=== PATIENT | male | born 1990 | race Hispanic/Latino ===

== ENCOUNTER 2018-01-05 18:46 | Emergency (ER) | payer SELFPAY ==
[2018-01-05] MEDS ORDERED: Dexamethasone 4 MG TAB ONE (19:17)
[2018-01-05] MEDS ORDERED: Ketorolac Tromethamine 60 MG/2 ML VIAL ONE (19:17)
== END 2018-01-05 19:41 | disposition home or self-care (01) ==
LOC: SCSER 18:46
DX: M26.601 Right temporomandibular joint disorder, unspecified (principal); G43.909 Migraine, unspecified, not intractable, without status migrainosus
CPT/HCPCS: 96372; J1885; J8540

== ENCOUNTER 2018-05-21 13:30 | Emergency (ER) | payer SELFPAY ==
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
[2018-05-21] MEDS ORDERED: Ibuprofen 800 MG TAB ONE (14:16)
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
== END 2018-05-21 14:27 | disposition home or self-care (01) ==
LOC: ERS 13:30
DX: S60.211A Contusion of right wrist, initial encounter (principal); S40.012A Contusion of left shoulder, initial encounter; S50.811A Abrasion of right forearm, initial encounter; G43.909 Migraine, unspecified, not intractable, without status migrainosus; V53.5XXA Driver of pick-up truck or van injured in collision with car, pick-up truck or van in traffic accident, initial encounter

== ENCOUNTER 2020-08-09 20:43 | Emergency (ER) | payer SELFPAY ==
[~2020-08-09 20:43] MED LIST: Iopamidol-370 76% 500 ML 1 ML ONE
[2020-08-09] MEDS ORDERED: Ondansetron PF 4 MG/2 ML Vial ONE (21:21)
[2020-08-09] MEDS ORDERED: Morphine 4 MG/ML VIAL ONE (21:21)
[2020-08-09 21:23] LABS: #Basophils 0.1 thou/uL (0.0-0.2); #Eosinphils 0.1 thou/uL (0.0-0.7); #Lymphocytes 1.8 thou/uL (1.20-3.40); #Monocytes 0.9 thou/uL (0.11-0.59); #Neutrophils 9.5 thou/uL (1.40-6.50); %Basophils 0.6 % (0.0-1.0); %Lymphocytes 14.5 % (21.0-51.0); %Monocytes 6.9 % (0.0-10.0); Hemoglobin 15.8 g/dL (14.0-18.0); Mean Corpuscular Hemoglobin 30.8 pg (27.0-31.0); Mean Corpuscular Volume 90.7 fL (78.0-98.0); Mean Platelet Volume 7.2 fL (7.4-10.4); Platelet Count 318 thou/uL (130-400); RBC Distribution Width 11.1 % (11.5-14.5); Red Blood Cell (RBC) Count 5.13 mill/uL (4.70-6.10); White Blood Cell (WBC) Count 12.3 thou/uL (4.8-10.8)
[2020-08-09 21:27] LABS: Bilirubin Negative (Negative); Blood, Urine Negative (Negative); Clarity Clear (Clear); Glucose, Urine (Dipstick) Normal (Negative); Ketone, Urine Negative (Negative); Leukocyte Negative Leu/uL (Negative); Nitrite Negative (Negative); Protein, Urine (Dipstick) Negative (Neg-Trace); Specific Gravity, Urine 1.025 (1.002-1.036); Urobilinogen Normal mg/dL (Less than 2); pH, Urine 5.5 (5.0-9.0)
[2020-08-09 21:44] LABS: ALT (SGPT) 42 U/L (8-55); AST (SGOT) 27 U/L (5-34); Albumin 4.8 g/dL (3.5-5.0); Alkaline Phosphatase 91 U/L (40-110); Anion Gap 12 mmol/L (10-20); BUN (Urea Nitrogen) 11 mg/dL (8.9-20.6); Bilirubin, Total 0.7 mg/dL (0.2-1.2); Calc. Creatinine Clearance 0 mL/min (70-130); Calcium 9.7 mg/dL (7.8-10.44); Carbon Dioxide 28 mmol/L (22-29); Chloride 103 mmol/L (98-107); Estimated GFR-MDRD 82; Globulin 3.3 g/dL (2.4-3.5); Glucose 88 mg/dL (70-105); Lipase 22 U/L (8-78); Potassium 3.7 mmol/L (3.5-5.1); Protein, Total 8.1 g/dL (6.0-8.3); Sodium 139 mmol/L (136-145)
--- NOTE | 2020-08-09 21:51 | CT ---
CT ABDOMEN AND PELVIS WITH IV CONTRAST: 08/09/20 PROVIDED CLINICAL HISTORY: Left lower quadrant pain. FINDINGS: The visualized lung bases are free of significant opacity. The solid abdominal organs demonstrate an unremarkable CT appearance. There is focal inflammatory fat stranding about a diverticulum involving the distal descending colon. There is no evidence for focal fluid collection or extraluminal gas. A rather conspicuous diverticul um is seen involving the sigmoid colon without surrounding inflammatory change. There is no evidence for bowel obstruction. The appendix appears normal. There is no additional fat stranding or significa nt free fluid. There is no evidence for free intraperitoneal air. The regional major vascular structures appear unremarkable. The osseous structures demonstrate no concerning lytic or blastic lesions. IMPRESSION: Uncomplicated descending colon diverticulitis. POS: [facility]
== END 2020-08-09 23:18 | disposition home or self-care (01) ==
LOC: ERS 20:43
DX: K57.32 Diverticulitis of large intestine without perforation or abscess without bleeding (principal); G43.909 Migraine, unspecified, not intractable, without status migrainosus
CPT/HCPCS: 74177; 80053; 81003; 83690; 85025; 96361; 96374; 96375; J2270; J2405; Q9967

== ENCOUNTER 2021-05-15 00:06 | Inpatient (IN) | payer SELFPAY ==
[2021-05-15] MEDS ORDERED: Ondansetron PF 4 MG/2 ML Vial ONE (00:24)
[2021-05-15] MEDS ORDERED: Ketorolac Tromethamine 30 MG/ML VIAL ONE (00:24)
[2021-05-15 00:45] LABS: #Lymphocytes 0.7 thou/uL (1.20-3.40); #Monocytes 0.3 thou/uL (0.11-0.59); #Neutrophils 3.2 thou/uL (1.40-6.50); %Basophils 0.3 % (0.0-1.0); %Eosinophils 0.1 % (0.0-10.0); %Lymphocytes 16.7 % (21.0-51.0); %Neutrophils 75.9 % (42.0-75.0); Hemoglobin 15.6 g/dL (14.0-18.0); Mean Corpuscular HGB CONC 33.1 g/dL (32.0-36.0); Mean Corpuscular Hemoglobin 30.2 pg (27.0-31.0); Mean Corpuscular Volume 91.4 fL (78.0-98.0); Mean Platelet Volume 7.2 fL (7.4-10.4); Platelet Count 206 thou/uL (130-400); Red Blood Cell (RBC) Count 5.16 mill/uL (4.70-6.10); White Blood Cell (WBC) Count 4.2 thou/uL (4.8-10.8)
[2021-05-15 01:08] LABS: ALT (SGPT) 31 U/L (8-55); AST (SGOT) 41 U/L (5-34); Albumin 4.3 g/dL (3.5-5.0); Alkaline Phosphatase 78 U/L (40-110); Anion Gap 16 mmol/L (10-20); BUN (Urea Nitrogen) 16 mg/dL (8.9-20.6); Bilirubin, Total 0.3 mg/dL (0.2-1.2); Calc. Creatinine Clearance 0 mL/min (70-130); Carbon Dioxide 22 mmol/L (22-29); Chloride 97 mmol/L (98-107); Globulin 3.9 g/dL (2.4-3.5); Glucose 112 mg/dL (70-105); Potassium 3.4 mmol/L (3.5-5.1); Protein, Total 8.2 g/dL (6.0-8.3); Sodium 132 mmol/L (136-145)
[2021-05-15 02:00] LABS: SARS-CoV-2 NAA Rapid Test DETECTED (NotDetected)
[2021-05-15] MEDS ORDERED: Albuterol 200 PUFF (6.7GM INHALER) ONE (02:23)
[2021-05-15] MEDS ORDERED: Acetaminophen 500 MG TAB ONE (02:24)
[2021-05-15] MEDS ORDERED: Dexamethasone 10 MG/ML VIAL ONE (02:24)
[2021-05-15] MEDS ORDERED: Ivermectin 3 MG TAB PO SCH (09:30)
[2021-05-15] MEDS ORDERED: Ondansetron ODT 4 MG TAB PO PRN (09:30)
[2021-05-15] MEDS ORDERED: Albuterol Sulfate 2.5 mg/3 ml Neb NEB PRN (09:30)
[2021-05-15] MEDS ORDERED: Ondansetron PF 4 MG/2 ML Vial IVP PRN (09:30)
[2021-05-15] MEDS ORDERED: Potassium Chloride 20 MEQ TAB PO SCH (09:45)
[2021-05-15] MEDS ORDERED: methylPREDNISolone Sod Succ 40 MG VIAL ONE (10:01)
[2021-05-15] MEDS ORDERED: Potassium Chloride 20 MEQ TAB ONE (10:02)
[2021-05-15] MEDS: methylPREDNISolone Sod Succ/PF 125 MG/2 ML VIAL IVP SCH ×2 (10:14→20:30)
[2021-05-15 12:55] VITALS: BMI 29.0
[2021-05-15] MEDS: Benzonatate 100 MG CAP PO PRN ×2 (13:25→23:16)
[2021-05-15] MEDS: Ketorolac Tromethamine 30 MG/ML VIAL IVP PRN ×2 (13:25→23:15)
[2021-05-15] MEDS: Potassium Chloride 20 MEQ TAB PO SCH (16:52)
[2021-05-15] MEDS: Enoxaparin Sodium 40 MG/0.4 ML SYRINGE SC SCH (20:30)
[2021-05-15] MEDS: Ascorbic Acid 500 mg Chewable Tablet PO SCH (20:31)
[2021-05-15] MEDS: Colchicine 0.6 MG TAB PO SCH ×2 (20:31→20:51)
[2021-05-15] MEDS: Famotidine 20 MG TAB PO SCH (20:31)
[2021-05-15] MEDS: Cholecalciferol 1,000 UNITS (25 MCG) TAB PO SCH (20:32)
[2021-05-15] MEDS: GUAIFENESIN SF SOLN 200 MG/10 ML UDCUP PO PRN (20:32)
[2021-05-15] MEDS: Acetaminophen 500 MG TAB PO PRN (20:50)
[2021-05-16 06:14] LABS: #Lymphocytes 0.7 thou/uL (1.20-3.40); #Monocytes 0.4 thou/uL (0.11-0.59); #Neutrophils 7.3 thou/uL (1.40-6.50); %Basophils 0.1 % (0.0-1.0); %Lymphocytes 7.8 % (21.0-51.0); %Monocytes 4.7 % (0.0-10.0); %Neutrophils 87.4 % (42.0-75.0); Hemoglobin 13.6 g/dL (14.0-18.0); Mean Corpuscular HGB CONC 34.2 g/dL (32.0-36.0); Mean Corpuscular Hemoglobin 31.2 pg (27.0-31.0); Mean Corpuscular Volume 91.1 fL (78.0-98.0); Mean Platelet Volume 7.6 fL (7.4-10.4); Platelet Count 194 thou/uL (130-400); Red Blood Cell (RBC) Count 4.38 mill/uL (4.70-6.10); White Blood Cell (WBC) Count 8.4 thou/uL (4.8-10.8)
[2021-05-16 06:35] LABS: Anion Gap 15 mmol/L (10-20); BUN (Urea Nitrogen) 17 mg/dL (8.9-20.6); CRP (Inflammatory) 5.59 mg/dL (= or < 0.5); Calc. Creatinine Clearance 167 mL/min (70-130); Calcium 8.4 mg/dL (7.8-10.44); Carbon Dioxide 19 mmol/L (22-29); Chloride 106 mmol/L (98-107); Glucose 147 mg/dL (70-105); Potassium 4.2 mmol/L (3.5-5.1); Sodium 136 mmol/L (136-145)
[2021-05-16] MEDS: Zinc Sulfate 220 MG CAP PO SCH (08:35)
[2021-05-16] MEDS: Enoxaparin Sodium 40 MG/0.4 ML SYRINGE SC SCH ×2 (08:35→20:54)
[2021-05-16] MEDS: Ascorbic Acid 500 mg Chewable Tablet PO SCH ×2 (08:35→20:55)
[2021-05-16] MEDS: Colchicine 0.6 MG TAB PO SCH ×2 (08:35→20:55)
[2021-05-16] MEDS: Benzonatate 100 MG CAP PO PRN ×2 (08:35→23:53)
[2021-05-16] MEDS: Famotidine 20 MG TAB PO SCH ×2 (08:35→20:55)
[2021-05-16] MEDS: Potassium Chloride 20 MEQ TAB PO SCH (08:35)
[2021-05-16] MEDS: GUAIFENESIN SF SOLN 200 MG/10 ML UDCUP PO PRN ×2 (08:35→14:43)
[2021-05-16] MEDS: Ketorolac Tromethamine 30 MG/ML VIAL IVP PRN (08:37)
[2021-05-16] MEDS ORDERED: REMDESIVIR 200 MG in Sodium Chloride 0.9% 250 ML 210 ML IV SCH (09:00)
[2021-05-16] MEDS: Acetaminophen 500 MG TAB PO PRN ×3 (09:31→20:56)
[2021-05-16] MEDS: methylPREDNISolone Sod Succ/PF 125 MG/2 ML VIAL IVP SCH ×2 (09:31→20:54)
[2021-05-16] MEDS ORDERED: Albuterol 200 PUFF (6.7GM INHALER) INH PRN (11:10)
[2021-05-16] MEDS: Benzonatate 100 MG CAP PO SCH ×2 (14:43→20:56)
[2021-05-16] MEDS: Cholecalciferol 1,000 UNITS (25 MCG) TAB PO SCH (20:55)
[2021-05-16] MEDS: guaiFENesin ER 600 MG TAB PO SCH (20:56)
[2021-05-17] MEDS: Zinc Sulfate 220 MG CAP PO SCH (09:25)
[2021-05-17] MEDS: Benzonatate 100 MG CAP PO SCH ×3 (09:25→20:27)
[2021-05-17] MEDS: Famotidine 20 MG TAB PO SCH ×2 (09:25→20:27)
[2021-05-17] MEDS: guaiFENesin ER 600 MG TAB PO SCH ×2 (09:25→20:28)
[2021-05-17] MEDS: Ascorbic Acid 500 mg Chewable Tablet PO SCH ×2 (09:25→20:26)
[2021-05-17] MEDS: Enoxaparin Sodium 40 MG/0.4 ML SYRINGE SC SCH ×2 (09:25→20:28)
[2021-05-17] MEDS: Colchicine 0.6 MG TAB PO SCH ×2 (09:25→20:28)
[2021-05-17] MEDS: methylPREDNISolone Sod Succ/PF 125 MG/2 ML VIAL IVP SCH ×2 (09:26→20:30)
[2021-05-17] MEDS: REMDESIVIR 100 MG in Sodium Chloride 0.9% 250 ML 230 ML IV SCH (09:26)
[2021-05-17] MEDS: Acetaminophen 500 MG TAB PO PRN ×2 (09:31→20:30)
[2021-05-17] MEDS: GUAIFENESIN SF SOLN 200 MG/10 ML UDCUP PO PRN ×2 (09:31→15:36)
[2021-05-17] MEDS: Cholecalciferol 1,000 UNITS (25 MCG) TAB PO SCH (20:27)
[2021-05-18 06:30] LABS: #Lymphocytes 0.5 thou/uL (1.20-3.40); #Monocytes 0.4 thou/uL (0.11-0.59); #Neutrophils 5.4 thou/uL (1.40-6.50); %Basophils 0.3 % (0.0-1.0); %Eosinophils 0.1 % (0.0-10.0); %Lymphocytes 8.5 % (21.0-51.0); %Monocytes 5.7 % (0.0-10.0); %Neutrophils 85.4 % (42.0-75.0); Hemoglobin 13.7 g/dL (14.0-18.0); Mean Corpuscular HGB CONC 33.5 g/dL (32.0-36.0); Mean Corpuscular Hemoglobin 31.2 pg (27.0-31.0); Mean Platelet Volume 7.9 fL (7.4-10.4); Platelet Count 244 thou/uL (130-400); RBC Distribution Width 11.2 % (11.5-14.5); Red Blood Cell (RBC) Count 4.38 mill/uL (4.70-6.10); White Blood Cell (WBC) Count 6.3 thou/uL (4.8-10.8)
[2021-05-18 06:55] LABS: ALT (SGPT) 60 U/L (8-55); AST (SGOT) 62 U/L (5-34); Albumin 3.4 g/dL (3.5-5.0); Alkaline Phosphatase 65 U/L (40-110); Anion Gap 13 mmol/L (10-20); BUN (Urea Nitrogen) 15 mg/dL (8.9-20.6); Bilirubin, Total 0.3 mg/dL (0.2-1.2); CRP (Inflammatory) 4.61 mg/dL (= or < 0.5); Calc. Creatinine Clearance 180 mL/min (70-130); Calcium 8.6 mg/dL (7.8-10.44); Carbon Dioxide 26 mmol/L (22-29); Chloride 104 mmol/L (98-107); Globulin 3.1 g/dL (2.4-3.5); Glucose 147 mg/dL (70-105); Potassium 4.3 mmol/L (3.5-5.1); Protein, Total 6.5 g/dL (6.0-8.3); Sodium 139 mmol/L (136-145)
[2021-05-18] MEDS: Famotidine 20 MG TAB PO SCH ×2 (09:32→20:21)
[2021-05-18] MEDS: guaiFENesin ER 600 MG TAB PO SCH ×2 (09:32→20:21)
[2021-05-18] MEDS: Zinc Sulfate 220 MG CAP PO SCH (09:32)
[2021-05-18] MEDS: Colchicine 0.6 MG TAB PO SCH ×2 (09:32→20:21)
[2021-05-18] MEDS: Enoxaparin Sodium 40 MG/0.4 ML SYRINGE SC SCH ×2 (09:32→20:22)
[2021-05-18] MEDS: Ascorbic Acid 500 mg Chewable Tablet PO SCH ×2 (09:32→20:22)
[2021-05-18] MEDS: Benzonatate 100 MG CAP PO SCH ×3 (09:32→20:21)
[2021-05-18] MEDS: REMDESIVIR 100 MG in Sodium Chloride 0.9% 250 ML 230 ML IV SCH (09:33)
[2021-05-18] MEDS: methylPREDNISolone Sod Succ/PF 125 MG/2 ML VIAL IVP SCH ×2 (09:35→21:40)
[2021-05-18] MEDS: GUAIFENESIN SF SOLN 200 MG/10 ML UDCUP PO PRN ×2 (14:54→20:23)
[2021-05-18] MEDS ORDERED: Piperacillin/Tazobactam 3.375 GM in Sodium Chloride 0.9% 100 ML IVPB SCH ×4 (19:30→23:59)
[2021-05-18] MEDS ORDERED: Azithromycin 500 MG in Sodium Chloride 0.9% 250 ML 250 ML IVPB SCH (20:00)
[2021-05-18] MEDS: Cholecalciferol 1,000 UNITS (25 MCG) TAB PO SCH (20:22)
[2021-05-19] MEDS: Piperacillin/Tazobactam 3.375 GM in Sodium Chloride 0.9% 100 ML IVPB SCH ×3 (06:09→21:54)
[2021-05-19 06:21] LABS: Hemoglobin 14.7 g/dL (14.0-18.0); Mean Corpuscular HGB CONC 34.1 g/dL (32.0-36.0); Mean Corpuscular Hemoglobin 31.4 pg (27.0-31.0); Mean Corpuscular Volume 92.1 fL (78.0-98.0); Mean Platelet Volume 7.8 fL (7.4-10.4); Platelet Count 294 thou/uL (130-400); RBC Distribution Width 11.2 % (11.5-14.5); Red Blood Cell (RBC) Count 4.68 mill/uL (4.70-6.10); White Blood Cell (WBC) Count 6.2 thou/uL (4.8-10.8)
[2021-05-19 06:28] LABS: ALT (SGPT) 53 U/L (8-55); AST (SGOT) 36 U/L (5-34); Albumin 3.4 g/dL (3.5-5.0); Alkaline Phosphatase 65 U/L (40-110); Bilirubin, Direct 0.2 mg/dL (0.1-0.3); Bilirubin, Total 0.4 mg/dL (0.2-1.2); Protein, Total 6.4 g/dL (6.0-8.3)
[2021-05-19] MEDS: Ascorbic Acid 500 mg Chewable Tablet PO SCH ×2 (09:36→20:35)
[2021-05-19] MEDS: Colchicine 0.6 MG TAB PO SCH ×2 (09:37→20:36)
[2021-05-19] MEDS: Famotidine 20 MG TAB PO SCH ×2 (09:37→20:36)
[2021-05-19] MEDS: Benzonatate 100 MG CAP PO SCH ×3 (09:37→20:36)
[2021-05-19] MEDS: guaiFENesin ER 600 MG TAB PO SCH (09:37)
[2021-05-19] MEDS: Zinc Sulfate 220 MG CAP PO SCH (09:37)
[2021-05-19] MEDS: REMDESIVIR 100 MG in Sodium Chloride 0.9% 250 ML 230 ML IV SCH (09:40)
[2021-05-19] MEDS: methylPREDNISolone Sod Succ/PF 125 MG/2 ML VIAL IVP SCH ×2 (09:40→20:39)
[2021-05-19] MEDS: Enoxaparin Sodium 40 MG/0.4 ML SYRINGE SC SCH ×2 (09:40→20:35)
[2021-05-19] MEDS: GUAIFENESIN SF SOLN 200 MG/10 ML UDCUP PO PRN ×2 (09:43→14:18)
[2021-05-19] MEDS ORDERED: Ivermectin 3 MG TAB PO SCH (11:00)
[2021-05-19] MEDS: Azithromycin 250 MG in Sodium Chloride 0.9% 250 ML 250 ML IVPB SCH (20:35)
[2021-05-19] MEDS: guaiFENesin/Codeine 200 mg/20 mg 10 ml Cup PO PRN (20:35)
[2021-05-19] MEDS: Cholecalciferol 1,000 UNITS (25 MCG) TAB PO SCH (20:36)
[2021-05-20] MEDS: Piperacillin/Tazobactam 3.375 GM in Sodium Chloride 0.9% 100 ML IVPB SCH ×3 (05:47→22:16)
[2021-05-20] MEDS: Benzonatate 100 MG CAP PO SCH ×3 (09:45→20:27)
[2021-05-20] MEDS: Enoxaparin Sodium 40 MG/0.4 ML SYRINGE SC SCH ×2 (09:46→20:26)
[2021-05-20] MEDS: Ascorbic Acid 500 mg Chewable Tablet PO SCH ×2 (09:46→20:26)
[2021-05-20] MEDS: Zinc Sulfate 220 MG CAP PO SCH (09:46)
[2021-05-20] MEDS: Famotidine 20 MG TAB PO SCH ×2 (09:46→20:27)
[2021-05-20] MEDS: methylPREDNISolone Sod Succ/PF 125 MG/2 ML VIAL IVP SCH ×2 (09:46→22:15)
[2021-05-20] MEDS: Colchicine 0.6 MG TAB PO SCH ×2 (09:46→20:27)
[2021-05-20] MEDS: guaiFENesin/Codeine 200 mg/20 mg 10 ml Cup PO PRN ×2 (09:47→17:03)
[2021-05-20] MEDS: REMDESIVIR 100 MG in Sodium Chloride 0.9% 250 ML 230 ML IV SCH (12:33)
[2021-05-20] MEDS: Acetaminophen 500 MG TAB PO PRN (17:03)
[2021-05-20] MEDS: Cholecalciferol 1,000 UNITS (25 MCG) TAB PO SCH (20:27)
[2021-05-20] MEDS: Azithromycin 250 MG in Sodium Chloride 0.9% 250 ML 250 ML IVPB SCH (20:27)
[2021-05-21] MEDS: Piperacillin/Tazobactam 3.375 GM in Sodium Chloride 0.9% 100 ML IVPB SCH ×3 (05:29→22:33)
[2021-05-21] MEDS: methylPREDNISolone Sod Succ/PF 125 MG/2 ML VIAL IVP SCH ×2 (09:09→22:32)
[2021-05-21] MEDS: Ascorbic Acid 500 mg Chewable Tablet PO SCH ×2 (09:10→20:15)
[2021-05-21] MEDS: Colchicine 0.6 MG TAB PO SCH ×2 (09:10→20:15)
[2021-05-21] MEDS: Enoxaparin Sodium 40 MG/0.4 ML SYRINGE SC SCH ×2 (09:10→20:15)
[2021-05-21] MEDS: Benzonatate 100 MG CAP PO SCH ×3 (09:10→20:15)
[2021-05-21] MEDS: Famotidine 20 MG TAB PO SCH ×2 (09:10→20:15)
[2021-05-21] MEDS: Zinc Sulfate 220 MG CAP PO SCH (09:10)
[2021-05-21] MEDS: Azithromycin 250 MG in Sodium Chloride 0.9% 250 ML 250 ML IVPB SCH (20:14)
[2021-05-21] MEDS: Cholecalciferol 1,000 UNITS (25 MCG) TAB PO SCH (20:15)
[2021-05-22] MEDS: Piperacillin/Tazobactam 3.375 GM in Sodium Chloride 0.9% 100 ML IVPB SCH ×2 (05:31→14:00)
[2021-05-22] MEDS: Enoxaparin Sodium 40 MG/0.4 ML SYRINGE SC SCH (09:20)
[2021-05-22] MEDS: methylPREDNISolone Sod Succ/PF 125 MG/2 ML VIAL IVP SCH (09:21)
[2021-05-22] MEDS: Famotidine 20 MG TAB PO SCH (09:21)
[2021-05-22] MEDS: Ascorbic Acid 500 mg Chewable Tablet PO SCH (09:21)
[2021-05-22] MEDS: Colchicine 0.6 MG TAB PO SCH (09:21)
[2021-05-22] MEDS: Benzonatate 100 MG CAP PO SCH ×2 (09:21→16:28)
[2021-05-22] MEDS: Zinc Sulfate 220 MG CAP PO SCH (09:21)
[2021-05-22 15:40] VITALS: BP 115/69; TEMP 97.9
[2021-05-22] MEDS ORDERED: Amoxicillin/Potassium Clav 875 MG TAB PO SCH (21:00)
== END 2021-05-22 15:39 | disposition home or self-care (01) | DRG 871 ==
LOC: ERS 00:06 → ERHOLD 03:51 → OBSVTOIN 09:30 → T4-A 12:39
PROVIDERS: ADMIT Internal Medicine; ATTEND Internal Medicine
PROC: 8E0ZXY6 Isolation (ICD-10-PCS; principal; 2021-05-15)
PROC: XW033E5 Introduction of Remdesivir Anti-infective into Peripheral Vein, Percutaneous Approach, New Technology Group 5 (ICD-10-PCS; 2021-05-15)
DX: A41.89 Other specified sepsis (principal); U07.1 COVID-19; J12.82 Pneumonia due to coronavirus disease 2019; J96.01 Acute respiratory failure with hypoxia; D64.9 Anemia, unspecified; R74.01 Elevation of levels of liver transaminase levels; E87.6 Hypokalemia; G43.909 Migraine, unspecified, not intractable, without status migrainosus; Z88.2 Allergy status to sulfonamides
CPT/HCPCS: 0240U; 36415; 71045; 80048; 80053; 80076; 82728; 83605; 83735; 85025; 85027; 86140; 86141; 87040; 87070; 87205; 96374; 96375; G0378; J0456; J1100; J1650; J1885; J2405; J2543; J2920; J2930; J3490; J7050

== ENCOUNTER 2022-01-08 16:34 | Emergency (ER) | payer BC, OTHER ==
[2022-01-08] MEDS ORDERED: Ketorolac Tromethamine 30 MG/ML VIAL ONE (17:56)
== END 2022-01-08 19:57 | disposition home or self-care (01) ==
LOC: ERS 16:34
DX: M70.72 Other bursitis of hip, left hip (principal); M70.71 Other bursitis of hip, right hip; G43.909 Migraine, unspecified, not intractable, without status migrainosus
CPT/HCPCS: 36415; 85652; 96372; J1885